=== PATIENT | male | born 1980 ===

== ENCOUNTER 2020-02-16 14:28 | Emergency (ER) | payer SELFPAY ==
[~2020-02-16] VITALS: Ht 157.5 cm; Wt 68.2 kg
[2020-02-16 14:47] VITALS: Ht 157.5 cm; Wt 68.2 kg
== END 2020-02-16 18:31 | disposition left against medical advice (07) ==
LOC: D.ER 14:28
DX: S69.91XA Unspecified injury of right wrist, hand and finger(s), initial encounter (principal); X58.XXXA Exposure to other specified factors, initial encounter; Z53.21 Procedure and treatment not carried out due to patient leaving prior to being seen by health care provider